=== PATIENT | female | born 1995 | race Hispanic/Latino ===

== ENCOUNTER 2017-07-19 10:19 | Emergency (ER) | payer MEDICAID ==
[~2017-07-19 10:19] MED LIST: ACET1TAB12 PO; DOCU-116 PO; FERS325 PO; IBUP-2070 PO
[2017-07-19] MEDS ORDERED: ACETAMINOPHEN EXTRA STRENGTH 500 MG TABLET ONE (10:50)
[2017-07-19 10:57] LABS: BASOPHILS % (AUTO) 0.3 % (0.0-5.0); EOSINOPHILS % (AUTO) 1.6 % (0.0-8.0); HEMATOCRIT 34.7 % (36-48); LYMPHOCYTES % (AUTO) 26.5 % (21.0-51.0); MEAN CORPUSCULAR HEMOGLOBIN 28.1 pg (27.0-33.0); MEAN CORPUSCULAR HGB CONC 33.5 g/dL (32.0-36.0); MEAN CORPUSCULAR VOLUME 83.8 fL (79-99); MONOCYTES % (AUTO) 6.5 % (3.0-13.0); NEUTROPHILS % (AUTO) 65.1 % (40.0-77.0); PLATELET COUNT (AUTO) 235 K/uL (130-400); RED BLOOD CELL COUNT(AUTO) 4.14 MIL/uL (4.00-5.50); RED CELL DISTRIBUTION WIDTH 15.2 % (11.0-15.5); WHITE BLOOD COUNT (AUTO) 10.4 K/uL (4.8-10.8)
[2017-07-19 11:12] LABS: HCG,QUAL RESULT NEGATIVE (NEGATIVE)
[2017-07-19 11:15] LABS: APPEARANCE,URINE Cloudy (CLEAR); BILIRUBIN,URINE Negative (NEGATIVE); COLOR,URINE Yellow (YELLOW); GLUCOSE, URINE (UA) Negative (NEGATIVE); KETONES,URINE Negative (NEGATIVE); LEUKOCYTE ESTERASE ,URINE Large (NEGATIVE); NITRATE,URINE Negative (NEGATIVE); OCCULT BLOOD,URINE Small (NEGATIVE); PH,URINE 7.5 (5.0-8.0); PROTEIN,URINE POS 1+ (NEGATIVE); UROBILINOGEN,URINE 0.2 mg/dL (0.2-1.0)
[2017-07-19 11:27] LABS: SQUAMOUS EPITHELIAL CELL,UR Rare /HPF (0-2); WBC,URINE >100 /HPF (0-1)
[2017-07-19 11:28] LABS: BACTERIA,URINE Moderate /HPF (None Seen)
[2017-07-19] MEDS ORDERED: LIDOCAINE HCL-MPF 1% 2ML VIAL ONE (11:35)
[2017-07-19] MEDS ORDERED: CEFTRIAXONE SODIUM 1 GM ONE (11:35)
== END 2017-07-19 12:20 | disposition home or self-care (01) ==
LOC: EDH 10:19
DX: N30.00 Acute cystitis without hematuria (principal); D64.9 Anemia, unspecified; M79.1 Myalgia
CPT/HCPCS: 36415; 81001; 81025; 85025; 96372; 99284; J0696; J3490

== ENCOUNTER 2017-12-12 17:08 | Observation (INO) | payer MEDICAID ==
[2017-12-12 17:40] LABS: APPEARANCE,URINE Clear (CLEAR); BILIRUBIN,URINE Negative (NEGATIVE); COLOR,URINE Yellow (YELLOW); GLUCOSE, URINE (UA) >=1000 mg/dL (NEGATIVE); KETONES,URINE Trace mg/dL (NEGATIVE); LEUKOCYTE ESTERASE ,URINE Small (NEGATIVE); NITRATE,URINE Negative (NEGATIVE); OCCULT BLOOD,URINE Negative (NEGATIVE); PROTEIN,URINE Negative (NEGATIVE)
[2017-12-12 17:50] LABS: SQUAMOUS EPITHELIAL CELL,UR 30-50 /HPF (0-2)
[2017-12-12 17:51] LABS: MUCUS,URINE Moderate LPF (None Seen)
[2017-12-12 17:53] LABS: BACTERIA,URINE Few /HPF (None Seen)
== END 2017-12-12 19:55 | disposition home or self-care (01) ==
LOC: EDH 17:08 → LDH 17:26
PROVIDERS: ADMIT Obstetrics & Gynecology; ATTEND Obstetrics & Gynecology
DX: O26.892 Other specified pregnancy related conditions, second trimester (principal); R10.9 Unspecified abdominal pain; O36.8130 Decreased fetal movements, third trimester, not applicable or unspecified; Z3A.20 20 weeks gestation of pregnancy
CPT/HCPCS: 59025; 76805; 81001; 99285; G0378 ×2

== ENCOUNTER 2018-01-24 10:50 | Observation (INO) | payer MEDICAID ==
[~2018-01-24] VITALS: Ht 160 cm; Wt 75.3 kg
[2018-01-24 11:44] LABS: APPEARANCE,URINE CLEAR (CLEAR); BILIRUBIN,URINE NEGATIVE (NEGATIVE); COLOR,URINE YELLOW (YELLOW); GLUCOSE, URINE (UA) 250 mg/dL (NEGATIVE); KETONES,URINE NEGATIVE (NEGATIVE); LEUKOCYTE ESTERASE ,URINE SMALL (NEGATIVE); NITRATE,URINE NEGATIVE (NEGATIVE); OCCULT BLOOD,URINE MODERATE (NEGATIVE); PROTEIN,URINE NEGATIVE (NEGATIVE); UROBILINOGEN,URINE 0.2 mg/dL (0.2-1.0)
[2018-01-24 12:12] LABS: BACTERIA,URINE Few /HPF (None Seen)
[2018-01-24] MEDS: LACTATED RINGERS 1000ML 1,000 ML IV SCH ×2 (12:25→13:28)
[2018-01-24] MEDS: CEFTRIAXONE SODIUM 1 GM IVP SCH ×2 (13:25→13:28)
[2018-01-24 14:34] VITALS: BP 102/58
== END 2018-01-24 14:38 | disposition home or self-care (01) ==
LOC: EDH 10:50 → LDH 11:20
PROVIDERS: ADMIT Obstetrics & Gynecology; ATTEND Obstetrics & Gynecology
DX: O46.92 Antepartum hemorrhage, unspecified, second trimester (principal); Z3A.26 26 weeks gestation of pregnancy
CPT/HCPCS: 81001; 96374; 99285; G0378 ×3; J0696; J7120; 96360

== ENCOUNTER 2018-03-28 19:32 | Observation (INO) | payer MEDICAID ==
[~2018-03-28] VITALS: Ht 160 cm; Wt 84.4 kg
[2018-03-28 20:23] LABS: AMPHET/METH SCREEN,URINE NEGATIVE (NEGATIVE); BARBITURATE SCREEN, URINE NEGATIVE (NEGATIVE); BENZODIAZEPINES SCREEN,URINE NEGATIVE (NEGATIVE); CANNABINOID SCREEN,URINE NEGATIVE (NEGATIVE); COCAINE SCREEN,URINE NEGATIVE (NEGATIVE); OPIATE SCREEN,URINE NEGATIVE (NEGATIVE); PHENCYCLIDINE SCREEN,URINE NEGATIVE (NEGATIVE)
[2018-03-28 20:34] LABS: APPEARANCE,URINE Clear (CLEAR); BILIRUBIN,URINE Negative (NEGATIVE); COLOR,URINE Yellow (YELLOW); GLUCOSE, URINE (UA) >=1000 mg/dL (NEGATIVE); KETONES,URINE Negative (NEGATIVE); LEUKOCYTE ESTERASE ,URINE Small (NEGATIVE); NITRATE,URINE Negative (NEGATIVE); OCCULT BLOOD,URINE Negative (NEGATIVE); PH,URINE 6.5 (5.0-8.0); PROTEIN,URINE Negative (NEGATIVE); UROBILINOGEN,URINE 0.2 mg/dL (0.2-1.0)
[2018-03-28 20:36] LABS: BACTERIA,URINE Few /HPF (None Seen); RBC,URINE None Seen /HPF (0-1); SQUAMOUS EPITHELIAL CELL,UR 0-2 /HPF (0-2)
[2018-03-28 20:51] VITALS: BP 131/71
== END 2018-03-28 21:05 | disposition home or self-care (01) ==
LOC: EDH 19:32 → LDH 19:33
PROVIDERS: ADMIT Obstetrics & Gynecology; ATTEND Obstetrics & Gynecology
DX: O60.03 Preterm labor without delivery, third trimester (principal); Z3A.35 35 weeks gestation of pregnancy; Z79.899 Other long term (current) drug therapy
CPT/HCPCS: 80305; 81001; 99284; G0378 ×2

== ENCOUNTER 2018-04-16 16:42 | Observation (INO) | payer MEDICAID ==
[~2018-04-16] VITALS: Ht 160 cm; Wt 88.9 kg
[2018-04-16 18:09] LABS: BASOPHILS % (AUTO) 0.3 % (0.0-5.0); EOSINOPHILS % (AUTO) 1.1 % (0.0-8.0); HEMATOCRIT 31.8 % (36-48); LYMPHOCYTES % (AUTO) 22.5 % (21.0-51.0); MEAN CORPUSCULAR HEMOGLOBIN 27.2 pg (27.0-33.0); MEAN CORPUSCULAR HGB CONC 32.4 g/dL (32.0-36.0); MEAN CORPUSCULAR VOLUME 83.9 fL (79-99); MONOCYTES % (AUTO) 6.7 % (3.0-13.0); NEUTROPHILS % (AUTO) 69.4 % (40.0-77.0); PLATELET COUNT (AUTO) 258 K/uL (130-400); RED BLOOD CELL COUNT(AUTO) 3.79 MIL/uL (4.00-5.50); RED CELL DISTRIBUTION WIDTH 16.8 % (11.0-15.5); WHITE BLOOD COUNT (AUTO) 11.4 K/uL (4.8-10.8)
[2018-04-16 18:20] LABS: CREATININE 0.5 mg/dL (0.5-1.5); POTASSIUM 3.9 mmol/L (3.5-5.1)
[2018-04-16 18:24] LABS: ALBUMIN 2.6 g/dL (3.5-5.0); BILIRUBIN,TOTAL 0.1 mg/dL (0.2-1.0); URIC ACID 3.4 mg/dL (2.6-7.2)
[2018-04-16 18:35] LABS: INR 0.89 (0.85-1.15); PROTHROMBIN TIME 9.4 SEC (9.6-11.6)
[2018-04-16 18:50] LABS: PARTIAL THROMBOPLASTIN TIME 29.8 SEC (26.3-35.5)
[2018-04-16 19:03] LABS: APPEARANCE,URINE Cloudy (CLEAR); BILIRUBIN,URINE Negative (NEGATIVE); COLOR,URINE Yellow (YELLOW); GLUCOSE, URINE (UA) 500 mg/dL (NEGATIVE); KETONES,URINE Negative (NEGATIVE); LEUKOCYTE ESTERASE ,URINE Large (NEGATIVE); NITRATE,URINE Negative (NEGATIVE); OCCULT BLOOD,URINE Moderate (NEGATIVE); PH,URINE 6.5 (5.0-8.0); PROTEIN,URINE Negative (NEGATIVE)
[2018-04-16 19:29] LABS: BACTERIA,URINE Few /HPF (None Seen); TRICHOMONAS,URINE Many /LPF (None Seen); WBC,URINE 26-50 /HPF (0-1)
[2018-04-23] MEDS ORDERED: FERR-82 PO (13:56)
[2018-04-23] MEDS ORDERED: PNV1TABL17 PO (13:56)
== END 2018-04-16 18:50 | disposition home or self-care (01) ==
LOC: EDH 16:42 → LDH 17:01
PROVIDERS: ADMIT Obstetrics & Gynecology; ATTEND Obstetrics & Gynecology
DX: O42.92 Full-term premature rupture of membranes, unspecified as to length of time between rupture and onset of labor (principal); O26.893 Other specified pregnancy related conditions, third trimester; R51 Headache; Z3A.38 38 weeks gestation of pregnancy; Z79.01 Long term (current) use of anticoagulants
CPT/HCPCS: 36415; 80053; 81001; 84550; 85025; 85384; 85610; 85730; 99284; G0378 ×2

== ENCOUNTER 2018-04-17 04:00 | Observation (INO) | payer MEDICAID ==
[~2018-04-17] VITALS: Ht 160 cm; Wt 88.0 kg
[2018-04-17] MEDS ORDERED: LACTATED RINGERS 1000ML 1,000 ML IV SCH ×3 (04:15→06:15)
[2018-04-17 04:25] VITALS: BP 120/80
[2018-04-17 04:25] LABS: APPEARANCE,URINE Cloudy (CLEAR); BILIRUBIN,URINE Negative (NEGATIVE); COLOR,URINE Yellow (YELLOW); GLUCOSE, URINE (UA) 250 mg/dL (NEGATIVE); KETONES,URINE Trace mg/dL (NEGATIVE); LEUKOCYTE ESTERASE ,URINE Large (NEGATIVE); NITRATE,URINE Negative (NEGATIVE); OCCULT BLOOD,URINE Moderate (NEGATIVE); PROTEIN,URINE Negative (NEGATIVE); UROBILINOGEN,URINE 0.2 mg/dL (0.2-1.0)
[2018-04-17 04:44] LABS: BACTERIA,URINE Few /HPF (None Seen); TRICHOMONAS,URINE Few /LPF (None Seen)
[2018-04-17] MEDS ORDERED: LACTATED RINGERS 1000ML IV PRN (05:15)
[2018-04-17] MEDS ORDERED: CEFTRIAXONE SODIUM 1 GM IVP SCH (07:00)
[2018-04-17] MEDS ORDERED: METRONIDAZOLE 500 MG TABLET PO SCH (07:00)
[2018-04-17] MEDS ORDERED: ACETAMINOPHEN EXTRA STRENGTH 500 MG TABLET PO SCH (08:00)
[2018-04-23] MEDS ORDERED: FERR-82 PO (13:56)
[2018-04-23] MEDS ORDERED: PNV1TABL17 PO (13:56)
== END 2018-04-17 09:24 | disposition home or self-care (01) ==
LOC: EDH 04:00 → LDH 04:01
PROVIDERS: ADMIT Obstetrics & Gynecology; ATTEND Obstetrics & Gynecology
DX: O36.8130 Decreased fetal movements, third trimester, not applicable or unspecified (principal); O46.93 Antepartum hemorrhage, unspecified, third trimester; Z3A.38 38 weeks gestation of pregnancy
CPT/HCPCS: 76819; 99284; G0378 ×5; J0696; J7120; 96360; 96361

== ENCOUNTER 2019-04-25 22:05 | Observation (INO) | payer MEDICAID ==
[~2019-04-25] VITALS: Ht 160 cm; Wt 88.9 kg
[~2019-04-25 22:05] MED LIST changes: -ACET1TAB12 PO; -DOCU-116 PO; +FERR-82 PO; -FERS325 PO; -IBUP-2070 PO; +PNV1TABL17 PO
[2019-04-25] MEDS ORDERED: LACTATED RINGERS 1000ML 1,000 ML IV SCH (22:15)
[2019-04-25] MEDS ORDERED: FERR325T22 PO (22:22)
[2019-04-25] MEDS ORDERED: PREN-196 PO (22:22)
[2019-04-25 22:49] LABS: APPEARANCE,URINE Clear (CLEAR); BILIRUBIN,URINE Negative (NEGATIVE); COLOR,URINE Yellow (YELLOW); GLUCOSE, URINE (UA) >=1000 mg/dL (NEGATIVE); KETONES,URINE Trace mg/dL (NEGATIVE); LEUKOCYTE ESTERASE ,URINE Negative (NEGATIVE); NITRATE,URINE Negative (NEGATIVE); OCCULT BLOOD,URINE Negative (NEGATIVE); PH,URINE 6.5 (5.0-8.0); PROTEIN,URINE Trace mg/dL (NEGATIVE)
[2019-04-25 22:57] LABS: AMPHET/METH SCREEN,URINE NEGATIVE (NEGATIVE); BARBITURATE SCREEN, URINE NEGATIVE (NEGATIVE); BENZODIAZEPINES SCREEN,URINE NEGATIVE (NEGATIVE); CANNABINOID SCREEN,URINE NEGATIVE (NEGATIVE); COCAINE SCREEN,URINE NEGATIVE (NEGATIVE); OPIATE SCREEN,URINE NEGATIVE (NEGATIVE); PHENCYCLIDINE SCREEN,URINE NEGATIVE (NEGATIVE)
[2019-04-25 23:09] LABS: BACTERIA,URINE None Seen /HPF (None Seen); MUCUS,URINE Rare LPF (None Seen); RBC,URINE None Seen /HPF (0-1); SQUAMOUS EPITHELIAL CELL,UR Few /HPF (0-2); WBC,URINE 0-1 /HPF (0-1)
[2019-04-25] MEDS ORDERED: CEFTRIAXONE SODIUM 1 GM IVP SCH (23:30)
[2019-04-25] MEDS ORDERED: CEFTRIAXONE SODIUM 1 GM IM SCH (23:30)
[2019-04-25] MEDS ORDERED: CEFTRIAXONE SODIUM 1 GM ONE (23:34)
== END 2019-04-26 00:15 | disposition home or self-care (01) ==
LOC: EDH 22:05 → LDH 22:17
PROVIDERS: ADMIT Obstetrics & Gynecology; ATTEND Obstetrics & Gynecology
DX: O60.03 Preterm labor without delivery, third trimester (principal); Z3A.35 35 weeks gestation of pregnancy
CPT/HCPCS: 80305; 81001; 99284; G0378 ×2; J0696; J7120; 96360

== ENCOUNTER 2019-05-25 13:18 | Inpatient (IN) | payer MEDICAID ==
[~2019-05-25] VITALS: Ht 160 cm; Wt 92.1 kg
[~2019-05-25 13:18] MED LIST changes: +FERR325T22 PO; +PREN-196 PO
[2019-05-25 13:53] LABS: APPEARANCE,URINE Clear (CLEAR); BILIRUBIN,URINE Negative (NEGATIVE); COLOR,URINE Yellow (YELLOW); GLUCOSE, URINE (UA) 500 mg/dL (NEGATIVE); KETONES,URINE Negative (NEGATIVE); LEUKOCYTE ESTERASE ,URINE Trace (NEGATIVE); NITRATE,URINE Negative (NEGATIVE); OCCULT BLOOD,URINE Negative (NEGATIVE); PH,URINE 7.5 (5.0-8.0); PROTEIN,URINE Negative (NEGATIVE)
[2019-05-25 13:58] LABS: BACTERIA,URINE Rare /HPF (None Seen); RBC,URINE 0-1 /HPF (0-1); SQUAMOUS EPITHELIAL CELL,UR Few /HPF (0-2); WBC,URINE 0-1 /HPF (0-1)
[2019-05-25] MEDS ORDERED: LACTATED RINGERS 1000ML 1,000 ML IV PRN (16:13)
[2019-05-25] MEDS ORDERED: OXYTOCIN-LR 20 UNITS/1000 ML 1,000 ML IV SCH (16:15)
[2019-05-25] MEDS ORDERED: PROMETHAZINE HCL 25 MG/ML 1ML AMPULE IM PRN (16:15)
[2019-05-25] MEDS ORDERED: AMPICILLIN 2GM+NS 100ML 100 ML IV SCH (16:15)
[2019-05-25 16:17] VITALS: BP 130/67
[2019-05-25] MEDS ORDERED: FLU VACC QS2019-20 36MOS UP/PF 60 MCG/0.5 ML ML IM ONE (16:30)
[2019-05-25] MEDS ORDERED: FLU VACC QS2019-20 36MOS UP/PF 60 MCG/0.5 ML ML IM SCH (16:45)
[2019-05-25 16:54] LABS: HEMATOCRIT 31.4 % (36-48); MEAN CORPUSCULAR HEMOGLOBIN 25.8 pg (27.0-33.0); MEAN CORPUSCULAR HGB CONC 30.6 g/dL (32.0-36.0); MEAN CORPUSCULAR VOLUME 84.4 fL (79-99); PLATELET COUNT (AUTO) 247 K/uL (130-400); RED BLOOD CELL COUNT(AUTO) 3.72 MIL/uL (4.00-5.50); RED CELL DISTRIBUTION WIDTH 15.7 % (11.0-15.5); WHITE BLOOD COUNT (AUTO) 11.1 K/uL (4.8-10.8)
[2019-05-25] MEDS ORDERED: OXYTOCIN 10 USP UNITS/ML 20 UNIT in LACTATED RINGERS 1000ML 1,000 ML IV SCH (19:30)
[2019-05-25] MEDS: MEPERIDINE-PF 50 MG/ML SYG IVP PRN (20:10)
[2019-05-25] MEDS ORDERED: TRANEXAMIC ACID 1000MG/10ML ONE (20:14)
[2019-05-25] MEDS ORDERED: MISOPROSTOL 200 MCG TABLET ONE (20:14)
[2019-05-25] MEDS: AMPICILLIN 1GM+NS 50ML 50 ML IV SCH (20:30)
[2019-05-25] MEDS ORDERED: LIDOCAINE HCL 1% 20 ML VIAL ONE (21:09)
[2019-05-25] MEDS: OXYTOCIN-LR 20 UNITS/1000 ML 1,000 ML IV SCH (21:45)
[2019-05-25] MEDS ORDERED: DIPH,PERTUSS(ACELL),TET VAC/PF 0.5 ML VIAL IM PRN (21:45)
[2019-05-25] MEDS ORDERED: BENZOCAINE/LANOLIN/ALOE VERA 60 ML AEROSOL TP PRN (21:45)
[2019-05-25] MEDS ORDERED: ACETAMINOPHEN-CODEINE 300/30MG TAB PO PRN (21:45)
[2019-05-25] MEDS ORDERED: LANOLIN 30GM OINTMENT TP PRN (21:45)
[2019-05-25] MEDS ORDERED: WITCH HAZEL 1 PAD TP PRN (21:45)
[2019-05-25] MEDS ORDERED: IBUPROFEN 600 MG TABLET ONE (22:08)
[2019-05-25 23:30] VITALS: BP 130/68
[2019-05-26] MEDS: AMPICILLIN 1GM+NS 50ML 50 ML IV SCH ×4 (00:15→16:15)
[2019-05-26 03:01] VITALS: BP 116/68
[2019-05-26 03:10] VITALS: BP 123/77
[2019-05-26] MEDS: OXYTOCIN-LR 20 UNITS/1000 ML 1,000 ML IV SCH (04:07)
[2019-05-26 07:12] LABS: HEMATOCRIT 28.9 % (36-48); MEAN CORPUSCULAR HEMOGLOBIN 25.6 pg (27.0-33.0); MEAN CORPUSCULAR HGB CONC 30.1 g/dL (32.0-36.0); PLATELET COUNT (AUTO) 219 K/uL (130-400); RED CELL DISTRIBUTION WIDTH 15.8 % (11.0-15.5); WHITE BLOOD COUNT (AUTO) 15.6 K/uL (4.8-10.8)
[2019-05-26 07:35] VITALS: BP 127/74
[2019-05-26] MEDS: IBUPROFEN 600 MG TABLET PO PRN ×2 (08:17→16:21)
[2019-05-26] MEDS ORDERED: DOCUSATE SODIUM 100 MG CAP PO SCH (09:00)
[2019-05-26 16:27] VITALS: BP 138/79
[2019-05-26] MEDS: MEPERIDINE-PF 50 MG/ML SYG IVP PRN (16:58)
--- NOTE | 2019-05-26 18:35 | NUR ---
Social Service Consult - hx of Depression & Cutting Patient lives with spouse, Tyler Thornton, and her 2 year old daughter and 1 year old son. This is third baby for patient. Baby's name is Crystal Thornton. Patient and spouse rent a house and have all basic needs. Patient does not work and stays home to care for her two small children. Spouse works for [employer] and earns $2400 a month. Patient is able to complete ADL's and has support from her mother when needed. Patient does admit to having hx of cutting self back in 2009. She reports she only did it for a short time and has not done it since then. Patient states she did not seek counseling for cutting self but was able to stop on her own. Patient did report that she was under the care of a Psychologist X 4 years when she was younger due to anger issues. Patient states it helped her and she no longer continued treatment. Patient denies being in a psychiatric hospital and states she has been fine for years. provided patient with information for counselors in the area and contact information for [facility] which includes Crisis Hotline. No referral made at this time. Addendum: 05/26/19 at 1849 by BECKY NOLASCO Amended: Links added.
--- NOTE | 2019-05-26 19:05 | NUR ---
PATIENT LEFT UNIT VIA WHEELCHAIR WITH BABY IN ARMS. PERSONAL VEHICLE USED FOR TRANSPORTATION ACCOMPANIED BY SIGNIFICANT OTHER. NO COMPLAINTS OR CONCERNS ADDRESSED FROM PATIENT ON DISCHARGE.
[2019-05-27 07:14] LABS: HEPATITIS Bs ANTIGEN SCREEN P Negative (Negative)
== END 2019-05-26 19:05 | disposition home or self-care (01) | DRG 542 ==
LOC: EDH 13:18 → OBSVTOIN 13:30 → LDH 13:30 → WSH 23:31
PROVIDERS: ADMIT Obstetrics & Gynecology; ATTEND Obstetrics & Gynecology
PROC: 10E0XZZ Delivery of Products of Conception, External Approach (ICD-10-PCS; principal; 2019-05-25)
PROC: 0DQR0ZZ Repair Anal Sphincter, Open Approach (ICD-10-PCS; 2019-05-25)
PROC: 3E02340 Introduction of Influenza Vaccine into Muscle, Percutaneous Approach (ICD-10-PCS; 2019-05-25)
PROC: 3E0234Z Introduction of Serum, Toxoid and Vaccine into Muscle, Percutaneous Approach (ICD-10-PCS; 2019-05-25)
DX: O62.2 Other uterine inertia (principal); Z37.0 Single live birth; O70.20 Third degree perineal laceration during delivery, unspecified; Z3A.39 39 weeks gestation of pregnancy; Z23 Encounter for immunization
CPT/HCPCS: 36415; 81001; 85027; 86592; 86850; 86900; 86901; 87340; 90715; G0378; J0290; J2175; J2550; J2590; J3490; Q2035